=== PATIENT | male | born 1965 | race Caucasian/White ===

== ENCOUNTER 2024-02-26 17:21 | Emergency (ER) | payer MEDICARE ==
[~2024-02-26] VITALS: Ht 185.4 cm; Wt 108.9 kg
[2024-02-26 18:08] LABS: BASOPHILS # (AUTO) 0.1 (0.0-0.1); BASOPHILS % 0.6 % (0.0-1.0); EOSINOPHILS # (AUTO) 0.1 (0.0-0.4); EOSINOPHILS % 1.1 % (0.0-6.0); HEMATOCRIT 50.4 % (38.2-49.6); HEMOGLOBIN 16.6 g/dL (14.0-18.0); LYMPHOCYTES # (AUTO) 1.8 (1.0-3.2); MEAN CORPUSCULAR HEMOGLOBIN 27.4 pg (28-32); MEAN CORPUSCULAR HGB CONC 32.9 g/dL (31-35); MEAN CORPUSCULAR VOLUME 83.2 fL (81-99); MONOCYTES # (AUTO) 0.7 (0.2-0.8); MONOCYTES % 8.8 % (4.4-11.3); NEUTROPHILS # (AUTO) 5.5 (2.1-6.9); NEUTROPHILS % 66.3 % (38.7-80.0); RED BLOOD COUNT 6.06 x10e6/uL (4.3-5.7); RED CELL DISTRIBUTION WIDTH 12.7 % (11.7-14.4); WHITE BLOOD COUNT 8.26 x10e3/uL (4.8-10.8)
[2024-02-26 18:12] LABS: PLATELET COUNT 41 x10e3/uL (140-360)
[2024-02-26] MEDS ORDERED: CLONIDINE HCL 0.1 MG TAB ONE (18:13)
[2024-02-26 18:27] LABS: ALBUMIN 3.7 g/dL (3.5-5.0); ALBUMIN/GLOBULIN RATIO 0.8 (0.8-2.0); ANION GAP 16.4 mmol/L (8-16); BILIRUBIN,TOTAL 0.5 mg/dL (0.2-1.2); CALCIUM 10.8 mg/dL (8.4-10.2); CREATININE, SERUM 0.92 mg/dL (0.72-1.25); POTASSIUM 4.4 mmol/L (3.5-5.1); TOTAL PROTEIN 8.6 g/dL (6.5-8.1)
[2024-02-26] MEDS: CLONIDINE HCL 0.2 MG TAB PO ONE (18:30)
[2024-02-26 18:33] LABS: TROPONIN I 0.047 ng/mL (0-0.300)
[2024-02-26 18:49] LABS: RBC MORPHOLOGY COMMENT NORMAL
[2024-02-26 18:50] LABS: PLATELET ESTIMATE MARKEDLY DECREASED; PLATELET MORPHOLOGY COMMENT MANY EDTA CLUMPING
[2024-02-26] MEDS ORDERED: IOPAMIDOL 370 MG/ML 100 ML INFUS..BTL INJ ONE (19:11)
[2024-02-26 20:30] VITALS: PULSE 93; RESP 28
[2024-02-26] MEDS ORDERED: LACTULOSE20 GM/30 M PO (21:32)
[2024-02-26 21:39] VITALS: BP 186/123
[2024-02-26] MEDS: HYDRALAZINE HCL 20 MG/ML VIAL IV STA (21:39)
[2024-02-26 21:45] VITALS: PULSE 99; RESP 22; TEMP 98.1; O2SAT 98
== END 2024-02-26 22:00 | disposition home or self-care (01) ==
LOC: ER 17:31
DX: R10.30 Lower abdominal pain, unspecified (principal); C67.9 Malignant neoplasm of bladder, unspecified; I16.0 Hypertensive urgency; K59.00 Constipation, unspecified; D69.6 Thrombocytopenia, unspecified; E11.65 Type 2 diabetes mellitus with hyperglycemia; I10 Essential (primary) hypertension; B19.20 Unspecified viral hepatitis C without hepatic coma; R94.31 Abnormal electrocardiogram [ECG] [EKG]
CPT/HCPCS: 36415; 71045; 74177; 80053; 83690; 84484; 85025; 85049; 93005; 99284; J0360; Q9967